=== PATIENT | male | born 1950 | race Hispanic/Latino ===

== ENCOUNTER → 2018-12-17 | Outpatient (CLI) | payer OTHER ==
[~2018-12-17] VITALS: Ht 170.2 cm; Wt 94.3 kg
[2018-12-17 10:00] VITALS: BP 192/100
[2018-12-17 10:20] LABS: BASOPHILS % (AUTO) 0.9 % (0.0-5.0); EOSINOPHILS % (AUTO) 2.8 % (0.0-8.0); HEMATOCRIT 38.2 % (42-54); LYMPHOCYTES % (AUTO) 29.5 % (21.0-51.0); MEAN CORPUSCULAR HEMOGLOBIN 31.5 pg (27.0-33.0); MEAN CORPUSCULAR VOLUME 92.6 fL (79-99); MONOCYTES % (AUTO) 10.4 % (3.0-13.0); NEUTROPHILS % (AUTO) 56.4 % (40.0-77.0); NUCLEATED RED BLOOD CELLS 0.1 % (0.0-0.19); PLATELET COUNT (AUTO) 203 K/uL (130-400); RED BLOOD CELL COUNT(AUTO) 4.13 MIL/uL (4.50-6.20); WHITE BLOOD COUNT (AUTO) 5.6 K/uL (4.8-10.8)
[2018-12-17 10:21] LABS: APPEARANCE,URINE Clear (CLEAR); BILIRUBIN,URINE Negative (NEGATIVE); COLOR,URINE Yellow (YELLOW); GLUCOSE, URINE (UA) Negative (NEGATIVE); KETONES,URINE Negative (NEGATIVE); LEUKOCYTE ESTERASE ,URINE Negative (NEGATIVE); NITRATE,URINE Negative (NEGATIVE); OCCULT BLOOD,URINE Negative (NEGATIVE); PROTEIN,URINE Negative (NEGATIVE); UROBILINOGEN,URINE 0.2 mg/dL (0.2-1.0)
[2018-12-17 10:34] LABS: POTASSIUM 4.4 mmol/L (3.5-5.1)
== END ==
LOC: DAH 10:00 → EDSTATUS 11:30
PROVIDERS: ATTEND Surgery
DX: Z01.818 Encounter for other preprocedural examination (principal); K42.9 Umbilical hernia without obstruction or gangrene
CPT/HCPCS: 36415; 80048; 81003; 85025; 93005

== ENCOUNTER 2019-02-24 08:59 | Day surgery (SDC) | payer OTHER ==
[2019-02-23 11:12] VITALS: BP 149/92
[2019-02-23 11:17] LABS: EOSINOPHILS % (AUTO) 3.7 % (0.0-8.0); HEMATOCRIT 38.5 % (42-54); LYMPHOCYTES % (AUTO) 26.6 % (21.0-51.0); MEAN CORPUSCULAR HEMOGLOBIN 31.2 pg (27.0-33.0); MEAN CORPUSCULAR HGB CONC 33.4 g/dL (32.0-36.0); MEAN CORPUSCULAR VOLUME 93.6 fL (79-99); MONOCYTES % (AUTO) 8.2 % (3.0-13.0); NEUTROPHILS % (AUTO) 60.5 % (40.0-77.0); PLATELET COUNT (AUTO) 184 K/uL (130-400); RED BLOOD CELL COUNT(AUTO) 4.11 MIL/uL (4.50-6.20); RED CELL DISTRIBUTION WIDTH 14.1 % (11.0-15.5); WHITE BLOOD COUNT (AUTO) 5.4 K/uL (4.8-10.8)
[2019-02-24] VITALS (12 sets, daily range): BP systolic 134–152; BP diastolic 51–81
[~2019-02-24] VITALS: Ht 168.9 cm; Wt 94.4 kg
[~2019-02-24 08:59] MED LIST: ASPI-555 PO; BUPIVACAINE/PF 0.25% 30ML VIAL IJ ONE; GLIP5POW MC; LISI-613 PO; LOVA40TA2 PO; OMEP40CA37 PO; SODIUM CHLORIDE 0.9% 1000ML 1,000 ML IV SCH
[2019-02-24] MEDS ORDERED: LIDOCAINE PF 2% 5ML ABBOJECT ONE (11:07)
[2019-02-24] MEDS ORDERED: SUCCINYLCHOLINE 200MG/10ML SYR ONE (11:07)
[2019-02-24] MEDS ORDERED: ONDANSETRON HCL 4 MG/2 ML VIAL ONE ×2 (11:09→12:00)
[2019-02-24] MEDS ORDERED: ROCURONIUM 10MG/1ML SYR 10 MG/ML ML ONE (11:09)
[2019-02-24] MEDS ORDERED: FENTANYL CITRATE PF 50 MCG/1 ML 2ML VIAL ONE (11:13)
[2019-02-24] MEDS ORDERED: METOPROLOL TARTRATE 1 MG/ML 5ML VIAL IV ONE (11:13)
[2019-02-24] MEDS ORDERED: MIDAZOLAM HCL 1 MG/ML 2ML VIAL ONE (11:14)
[2019-02-24] MEDS ORDERED: DEXAMETHASONE SOD PHOSPHATE 10MG/ML 1ML VIAL ONE (11:59)
[2019-02-24] MEDS ORDERED: GLYCOPYRROLATE 1 MG/5 ML SYRINGE ONE (12:08)
[2019-02-24] MEDS ORDERED: NEOSTIGMINE 5MG/5ML SYR IV ONE (12:09)
[2019-02-24] MEDS ORDERED: MEPERIDINE-PF 25 MG/ML SYG ONE (12:52)
[2019-02-24] MEDS ORDERED: KETOROLAC TROMETHAMINE 30MG/ML ONE (12:52)
--- NOTE | 2019-02-24 13:15 | NUR ---
NOTE PT RECEIVED BY JUAN BROWN FROM [facility]. Addendum: 02/24/19 at 1417 by ABDULLAHI CANO RN RN PER JUAN BROWN REPORT, PT STABLE, NO COMPLAINTS MADE. DRESSING TO MID ABDOMEN DRY AND INTACT.
--- NOTE | 2019-02-24 13:25 | NUR ---
RECEIVE PT RECEIVED CASTANEDA'S POSITION ON STRETCHER. PT STABLE. NO COMPLAINTS MADE. ABDOMEN SOFT. DRESSING TO MID ABDOMEN DRY AND INTACT. ICE PACK APPLIED TO SITE. CALL FONTANA WITHIN REACH, WILL CALL FOR TO COME IN TO ROOM.
--- NOTE | 2019-02-24 14:10 | NUR ---
DISCHARGE PT DISCHARGED VIA WHEELCHAIR WITH . PT STABLE. NO COMPLAINTS MADE. ABDOMEN REMAINS SOFT, DRESSING DRY AND INTACT. DISCHARGE INSTRUCTIONS GIVEN TO , VERBALIZED UNDERSTANDING.
== END 2019-02-24 14:10 | disposition home or self-care (01) ==
LOC: DAH 08:59
PROVIDERS: ATTEND Surgery
DX: K42.9 Umbilical hernia without obstruction or gangrene (principal); G47.30 Sleep apnea, unspecified; K21.9 Gastro-esophageal reflux disease without esophagitis; Z68.33 Body mass index [BMI] 33.0-33.9, adult; E11.9 Type 2 diabetes mellitus without complications; Z90.49 Acquired absence of other specified parts of digestive tract; Z98.890 Other specified postprocedural states; I10 Essential (primary) hypertension
CPT/HCPCS: 36415; 49585; 80048; 82948 ×2; 85025; 93005; A4450; A4452; A4606; C1781; J0330; J1100; J1885; J2001; J2175; J2250; J2405 ×2; J2710; J3010; J3490 ×3; J7030 ×2